=== PATIENT | female | born 1985 | race Hispanic/Latino ===

== ENCOUNTER 2020-01-17 17:55 | Emergency (ER) | payer OTHER ==
[2020-01-17] MEDS ORDERED: KETOROLAC TROMETHAMINE 60 MG/2 ML VIAL ONE (18:07)
[2020-01-17] MEDS ORDERED: ALPRAZOLAM 0.25 MG TABLET ONE (18:07)
== END 2020-01-17 19:02 | disposition home or self-care (01) ==
LOC: EDH 17:55
DX: R07.89 Other chest pain (principal); F45.8 Other somatoform disorders; F41.9 Anxiety disorder, unspecified; Z88.5 Allergy status to narcotic agent
CPT/HCPCS: 71045; 93005; 96372; 99283; J1885

== ENCOUNTER 2020-04-22 16:05 | Emergency (ER) | payer SELFPAY ==
[2020-04-22] MEDS ORDERED: ASPIRIN 325 MG TABLET ONE (16:56)
[2020-04-22 17:00] LABS: BASOPHILS % (AUTO) 0.4 % (0.0-5.0); EOSINOPHILS % (AUTO) 1.7 % (0.0-8.0); HEMATOCRIT 42.7 % (36-48); LYMPHOCYTES % (AUTO) 31.3 % (21.0-51.0); MEAN CORPUSCULAR HEMOGLOBIN 29.4 pg (27.0-33.0); MEAN CORPUSCULAR HGB CONC 34.2 g/dL (32.0-36.0); MEAN CORPUSCULAR VOLUME 86.1 fL (79-99); MONOCYTES % (AUTO) 7.9 % (3.0-13.0); NEUTROPHILS % (AUTO) 58.4 % (40.0-77.0); PLATELET COUNT (AUTO) 406 K/uL (130-400); RED BLOOD CELL COUNT(AUTO) 4.96 MIL/uL (4.00-5.50); RED CELL DISTRIBUTION WIDTH 11.9 % (11.0-15.5); WHITE BLOOD COUNT (AUTO) 11.1 K/uL (4.8-10.8)
[2020-04-22 17:11] LABS: PROTHROMBIN TIME 10.9 SEC (9.6-11.6)
[2020-04-22 17:13] LABS: PARTIAL THROMBOPLASTIN TIME 30.1 SEC (26.3-35.5)
[2020-04-22 17:17] LABS: ALBUMIN 3.6 g/dL (3.5-5.0); BILIRUBIN,TOTAL 0.3 mg/dL (0.2-1.0); CREATININE 0.7 mg/dL (0.5-1.5); POTASSIUM 3.5 mmol/L (3.5-5.1); TOTAL PROTEIN, SERUM 7.5 g/dL (6.0-8.3)
[2020-04-22 17:34] LABS: APPEARANCE,URINE Clear (CLEAR); BILIRUBIN,URINE Negative (NEGATIVE); COLOR,URINE Yellow (YELLOW); GLUCOSE, URINE (UA) Negative (NEGATIVE); KETONES,URINE Negative (NEGATIVE); LEUKOCYTE ESTERASE ,URINE Negative (NEGATIVE); NITRATE,URINE Positive (NEGATIVE); OCCULT BLOOD,URINE Negative (NEGATIVE); PROTEIN,URINE POS 1+ mg/dL (NEGATIVE)
[2020-04-22 18:04] LABS: BACTERIA,URINE Many /HPF (None Seen); MUCUS,URINE Rare LPF (None Seen)
[2020-04-22] MEDS ORDERED: KETOROLAC 30MG VIAL (30MG/ML) ONE (18:35)
[2020-04-22] MEDS ORDERED: NITROFURANTOIN MONOHYD/M-CRYST 100 MG CAPSULE PO ONE (18:35)
[2020-04-22] MEDS ORDERED: 0.9%NACL 1000ML 1,000 ML IV ONE (18:37)
== END 2020-04-22 20:49 | disposition home or self-care (01) ==
LOC: EDH 16:05
DX: N39.0 Urinary tract infection, site not specified (principal); R07.89 Other chest pain; Z98.890 Other specified postprocedural states; Z88.1 Allergy status to other antibiotic agents; Z90.710 Acquired absence of both cervix and uterus
CPT/HCPCS: 36415; 71045; 80053; 81001; 82550; 84484; 85025; 85610; 85730; 87077; 87088; 87186; 93005; 96374; 99285; J1885; J7030

== ENCOUNTER 2020-11-10 16:22 | Emergency (ER) | payer OTHER ==
[~2020-11-10] VITALS: Ht 152.4 cm; Wt 100.0 kg
[2020-11-10 16:40] VITALS: BP 129/81
[2020-11-10] MEDS ORDERED: MORPHINE 4 MG SYG IVP ONE (17:00)
[2020-11-10] MEDS ORDERED: 0.9%NACL 1000ML 1,000 ML IV ONE (17:00)
[2020-11-10] MEDS ORDERED: ACETAMINOPHEN 325 MG TAB PO ONE (17:00)
[2020-11-10] MEDS ORDERED: ONDANSETRON 4MG INJ IVP ONE (17:00)
[2020-11-10 17:34] LABS: BASOPHILS % (AUTO) 0.4 % (0.0-5.0); EOSINOPHILS % (AUTO) 1.8 % (0.0-8.0); HEMATOCRIT 42.3 % (36-48); LYMPHOCYTES % (AUTO) 33.1 % (21.0-51.0); MEAN CORPUSCULAR HEMOGLOBIN 29.5 pg (27.0-33.0); MEAN CORPUSCULAR HGB CONC 33.8 g/dL (32.0-36.0); MEAN CORPUSCULAR VOLUME 87.2 fL (79-99); NEUTROPHILS % (AUTO) 58.4 % (40.0-77.0); PLATELET COUNT (AUTO) 379 K/uL (130-400); RED BLOOD CELL COUNT(AUTO) 4.85 MIL/uL (4.00-5.50); RED CELL DISTRIBUTION WIDTH 12.4 % (11.0-15.5)
[2020-11-10 17:59] LABS: ALBUMIN 3.2 g/dL (3.5-5.0); BILIRUBIN,TOTAL 0.3 mg/dL (0.2-1.0); CREATININE 0.9 mg/dL (0.5-1.5); POTASSIUM 3.6 mmol/L (3.5-5.1); TOTAL PROTEIN, SERUM 7.5 g/dL (6.0-8.3)
[2020-11-10] MEDS ORDERED: IOHEXOL-350 75 ML VIAL IV ONE (18:03)
[2020-11-10 19:24] VITALS: BP 129/84
[2020-11-10] MEDS ORDERED: ONDA4TAB4 PO (19:39)
[2020-11-10] MEDS ORDERED: CIPR-278 PO (19:39)
[2020-11-10] MEDS ORDERED: METR-172 PO (19:39)
[2020-11-10 19:57] LABS: APPEARANCE,URINE Clear (CLEAR); BILIRUBIN,URINE Negative (NEGATIVE); COLOR,URINE Yellow (YELLOW); GLUCOSE, URINE (UA) Negative (NEGATIVE); KETONES,URINE Negative (NEGATIVE); LEUKOCYTE ESTERASE ,URINE Negative (NEGATIVE); NITRATE,URINE Negative (NEGATIVE); OCCULT BLOOD,URINE Negative (NEGATIVE); PROTEIN,URINE Trace mg/dL (NEGATIVE)
[2020-11-10] MEDS ORDERED: MORPHINE 2 MG SYG IVP ONE (20:00)
[2020-11-10] MEDS ORDERED: METRONIDAZOLE 500 MG TABLET PO SCH (20:00)
[2020-11-10] MEDS ORDERED: KETOROLAC 30MG VIAL (30MG/ML) IV ONE (20:00)
[2020-11-10] MEDS ORDERED: CIPROFLOXACIN HCL 500 MG TABLET PO SCH (20:00)
[2020-11-10] MEDS ORDERED: ACET1TAB25 PO (20:23)
== END 2020-11-10 20:52 | disposition home or self-care (01) ==
LOC: EDH 16:22
DX: K57.32 Diverticulitis of large intestine without perforation or abscess without bleeding (principal); Z79.1 Long term (current) use of non-steroidal anti-inflammatories (NSAID); Z79.899 Other long term (current) drug therapy; Z88.0 Allergy status to penicillin
CPT/HCPCS: 36415; 74177; 80053; 81003; 83690; 85025; 87088; 96361; 96374; 96375; 96376; 99285; J1885; J2270; J2405; J7030; Q9967

== ENCOUNTER 2021-02-23 17:38 | Emergency (ER) | payer OTHER ==
[~2021-02-23] VITALS: Ht 162.6 cm; Wt 85.7 kg
[~2021-02-23 17:38] MED LIST: ACET1TAB25 PO; CIPR-278 PO; METR-172 PO; ONDA4TAB4 PO
[2021-02-23 17:42] VITALS: BP 108/79
== END 2021-02-23 20:56 | disposition left against medical advice (07) ==
LOC: EDH 17:38
DX: R05.9 Cough, unspecified (principal); R09.81 Nasal congestion; Z20.822 Contact with and (suspected) exposure to COVID-19
CPT/HCPCS: 71045; 87635; 87804 ×2; C9803

== ENCOUNTER 2023-07-10 12:33 | Emergency (ER) | payer OTHER ==
[~2023-07-10] VITALS: Ht 152.4 cm; Wt 80.3 kg
[~2023-07-10 12:33] MED LIST changes: +ACET-2079 PO; -ACET1TAB25 PO
[2023-07-10 13:04] LABS: BASOPHILS # (AUTO) 0.03 K/uL (0.00-0.20); BASOPHILS % (AUTO) 0.4 % (0.0-5.0); EOSINOPHILS # (AUTO) 0.18 K/uL (0.00-0.70); EOSINOPHILS % (AUTO) 2.5 % (0.0-8.0); IMMATURE GRANULOCYTE ABSOLUTE 0.02 K/uL (0-1); LYMPHOCYTES # (AUTO) 2.2 K/uL (1.0-4.8); LYMPHOCYTES % (AUTO) 29.8 % (21.0-51.0); MEAN CORPUSCULAR HEMOGLOBIN 29.8 pg (27.0-33.0); MEAN CORPUSCULAR HGB CONC 34.6 g/dL (32.0-36.0); MEAN CORPUSCULAR VOLUME 86.2 fL (79-99); MONOCYTES # (AUTO) 0.4 K/uL (0.1-1.0); MONOCYTES % (AUTO) 5.6 % (3.0-13.0); NEUTROPHILS # (AUTO) 4.5 K/uL (1.8-7.7); NEUTROPHILS % (AUTO) 61.4 % (40.0-77.0); PLATELET COUNT (AUTO) 354 K/uL (130-400); RED BLOOD CELL COUNT(AUTO) 5.57 MIL/uL (4.00-5.50); RED CELL DISTRIBUTION WIDTH 12.5 % (11.0-15.5); WHITE BLOOD COUNT (AUTO) 7.3 K/uL (4.8-10.8)
[2023-07-10 13:13] LABS: CREATININE 0.8 mg/dL (0.5-1.0); POTASSIUM 3.9 mmol/L (3.5-5.1)
[2023-07-10 13:17] LABS: ALBUMIN 3.5 g/dL (3.5-5.0); BILIRUBIN,TOTAL 0.5 mg/dL (0.2-1.0); TOTAL PROTEIN, SERUM 7.5 g/dL (6.0-8.3)
[2023-07-10 14:12] VITALS: BP 121/65; PULSE 85; RESP 16
[2023-07-10] MEDS: ACETAMINOPHEN 500 MG TABLET PO ONE (14:49)
[2023-07-10 18:05] LABS: ADD UA MICROSCOPIC YES; APPEARANCE,URINE CLEAR (CLEAR); BILIRUBIN,URINE NEGATIVE (NEGATIVE); COLOR,URINE YELLOW (YELLOW); GLUCOSE, URINE (UA) NEGATIVE (NEGATIVE); KETONES,URINE NEGATIVE (NEGATIVE); LEUKOCYTE ESTERASE ,URINE NEGATIVE Leu/uL (NEGATIVE); NITRATE,URINE NEGATIVE (NEGATIVE); OCCULT BLOOD,URINE NEGATIVE (NEGATIVE); PROTEIN,URINE 50 mg/dL (NEGATIVE); UROBILINOGEN,URINE 0.2 mg/dL (0.2-1.0)
[2023-07-10 18:07] LABS: BACTERIA,URINE RARE /HPF (None Seen); MUCUS,URINE RARE LPF (None Seen); RBC,URINE 0-1 /HPF (0-1); SQUAMOUS EPITHELIAL CELL,UR RARE /HPF (0-2)
[2023-07-10] MEDS ORDERED: IOHEXOL-350 75 ML VIAL IV ONE (18:55)
[2023-07-10] MEDS: MORPHINE 2 MG SYG IVP ONE (20:46)
[2023-07-10] MEDS ORDERED: IBUP-2077 PO (21:29)
== END 2023-07-10 22:13 | disposition home or self-care (01) ==
LOC: EDH 12:33
DX: K92.2 Gastrointestinal hemorrhage, unspecified (principal); Z79.899 Other long term (current) drug therapy; Z90.710 Acquired absence of both cervix and uterus; Z98.890 Other specified postprocedural states; Z88.0 Allergy status to penicillin
CPT/HCPCS: 99285; 74177; 96374; 82270; 80053; 85025; 81001; 36415; J2270; Q9967

== ENCOUNTER 2024-04-25 13:09 | Emergency (ER) | payer BC ==
[~2024-04-25] VITALS: Ht 160 cm; Wt 86.2 kg
[~2024-04-25 13:09] MED LIST changes: +IBUP-2077 PO
--- NOTE | 2024-04-25 13:53 | ERN ---
ED Note History of Present Illness Stated Complaint: MULT COMP Time Seen by MD: 13:13 Dictation: PATIENT IS A 39-YEAR-OLD FEMALE COMING IN WITH FLU-LIKE SYMPTOMS TO INCLUDE COUGH WITH THE OCCASIONAL CLEAR YELLOW PHLEGM, SINUS CONGESTION SORE THROAT WITH PAINFUL SWALLOWING. SHE STATES SHE ALSO HAS BODY ACHES HAS TAKEN [id number] MEDICATIONS FOR PAIN. NO PRIMARY CARE DOCTOR NO NAUSEA VOMITING NO DIARRHEA NO LOSS OF TASTE OR SMELL. Allergies: Coded Allergies: amoxicillin (Unverified Allergy, Unknown, 01/17/20) Home Meds Active Scripts Methylprednisolone (Medrol) 4 Mg Tab.ds.pk, 1 TAB PO AD for 6 Days, #21 TAB 0 Refills 6 on day 1 then reduce by one tablet daily until gone Prov:VIOLA JAIN DUTY ENGINEER 04/25/24 Benzonatate (Tessalon Perles) 100 Mg Cap, 100 MG PO TID for cough, #30 CAP 0 Refills Prov:VIOLA JAIN DUTY ENGINEER 04/25/24 Albuterol Sulfate (Ventolin Hfa/Proventil Hfa/Proair Hfa) 90 Mcg Puff, 2 PUFF IH Q4H for WHEEZING, #1 INHALER 0 Refills Prov:VIOLA JAIN NP 04/25/24 Azithromycin (Zithromax Tri-Ac) 500 Mg Tablet, 500 MG PO DAILY for 7 Days, #7 TAB Prov:VIOLA JAIN DUTY ENGINEER 04/25/24 Ibuprofen (Ibuprofen 800 mg Tab) 800 Mg Tab, 800 MG PO Q6H PRN for PAIN, #30 TAB Prov:PHUC ROMERO DO 07/10/23 Acetaminophen with Codeine (Acetaminophen-Cod #3 Tablet) 1 Each Tablet, 1 TAB PO TID PRN for PAIN LEVEL 1 TO 5 for 3 Days, #9 TAB Prov:DEAN CLEMONS 11/10/20 Ondansetron HCl (Zofran) 4 Mg Tablet, 4 MG PO Q8H PRN for NAUSEA/VOMITING for 3 Days, #9 TAB 0 Refills Prov:DEAN CLEMONS 11/10/20 Metronidazole (Metronidazole) 500 Mg Tablet, 500 MG PO TID for 10 Days, #30 TAB Prov:DEAN CLEMONS 11/10/20 Ciprofloxacin HCl (Cipro) 500 Mg Tablet, 1 TAB PO BID for 10 Days, #20 TAB 0 Refills Prov:DEAN CLEMONS CHEL 11/10/20 Past Medical History Past Medical History: Other Additional Past Medical Hx: HX OF COLON CA Surgical History: Hysterectomy, Surgical History Other: COLON RESECTION Social History: Negative, Lives with family History: Not Applicable RN Note Reviewed/Agreed w/PFSH: Yes Review of System Dictation CONSTITUTIONAL: NEGATIVE EXCEPT FOR HPI FEVER CHILLS HEAD/FACE: NEGATIVE EXCEPT FOR HPI EENT: NEGATIVE EXCEPT FOR HPI SINUS CONGESTION WITH MILD SORE THROAT RESPIRATORY: NEGATIVE EXCEPT FOR HPI COUGH GASTROINTESTINAL/ABDOMINAL: NEGATIVE EXCEPT FOR HPI GENITOURINARY: NEGATIVE EXCEPT FOR HPI MUSCULOSKELETAL: NEGATIVE EXCEPT FOR HPI INTEGUMENTARY: NEGATIVE EXCEPT FOR HPI NEUROLOGICAL/PSYCH: NEGATIVE EXCEPT FOR HPI HEMATOLOGIC/LYMPHATIC: NEGATIVE EXCEPT FOR HPI ALL SYSTEMS NEGATIVE, EXCEPT NOTED ABOVE. 13 POINT REVIEW OF SYSTEMS ASSESSED AND ALL NEGATIVE EXCEPT FOR ABOVE. Initial Vital Sign VS Vital Signs Date Time Temp Pulse Resp B/P (MAP) Pulse Ox O2 Delivery O2 Flow Rate FiO2 04/25/24 13:56 98.4 73 20 134/92 99 Room Air 0 04/25/24 14:43 21 Physical Exam Dictation VITAL SIGNS REVIEWED GENERAL APPEARANCE: ALERT, ORIENTED X 3, MILD ACUTE DISTRESS, WELL DEVELOPED, NOURISHED. HEAD AND FACE: NON-TRAUMATIC. EYES: PERRL, PINK CONJUNCTIVAS, EYELID NO TRAUMA, ANTERIOR CHAMBER WITH ARCUS SENILIS. EARS: PINNAS INTACT AND NO SIGNS OF TRAUMA OR ERYTHEMA EAR CANALS CLEAR AND NO DISCHARGE TM NO ERYTHEMA NOSE: CLEAR DISCHARGE, NO BLEEDING. OROPHARYNX: MOUTH NORMAL, TONGUE PINK, PHARYNX CLEAR MODERATE PHARYNGEAL ERYTHEMA, TONSILS NO EXUDATES, NO ABSCESSES NOTED, MUCOUS MEMBRANE MOIST UVULA MIDLINE, VOICE NECK: SUPPLE, NON-TENDER, NO THYROMEGALY, NO MASSES, NO JVD, NO BRUITS BREAST:DEFERRED CHEST:NO TENDERNESS, NO CREPITUS, NO PARADOXICAL MOVEMENT, NO RETRACTIONS LUNGS:CLEAR, WELL-VENTILATED, SYMMETRIC, NO RALES, NO WHEEZING, NO RHONCHI, NO STRIDOR, GOOD BREATH SOUNDS BILATERALLY IS CLEAR DRY COUGH NOTED HEART: REGULAR RATE, REGULAR RHYTHM, NO MURMUR, NO GALLOPS VASCULAR: NO PERIPHERAL EDEMA, ABDOMEN: SOFT, POSITIVE BOWEL SOUNDS, NONDISTENDED, NO GUARDING, NONTENDER, NO REBOUND, NO MASSES NO HEPATOMEGALY, NO SPLENOMEGALY, NO RADFORD'S SIGN, NO HERNIAS. RECTAL: DEFERRED GENITAL: DEFERRED NEUROLOGICAL: NORMAL SPEECH, MOTOR FUNCTION INTACT, SENSORY FUNCTION INTACT MUSCULOSKELETAL: NECK NONTENDER, FULL RANGE OF MOTION, BACK NONTENDER, FULL RANGE OF MOTION, EXTREMITIES: NONTENDER, FULL RANGE OF MOTION SKIN: COLOR PINK, DRY, NO TURGOR, NO RASH, NO LACERATIONS, NO ABRASIONS, NO CONTUSIONS. LYMPHATIC: DEFERRED Results (Laboratory/Radiology) Laboratory/Radiology Labs Reviewed?: Yes ED Course ED Course 5/SWABS NEGATIVE PATIENT DISCHARGED HOME WITH VIRAL URI WITH COUGH AND ACUTE PHARYNGITIS UNSPECIFIED. Medical Decision Making MDM MEDICAL DISCHARGE MAKING BASED ON SWABS FOR FLU COVID AND STREP ALL SWABS NEGATIVE PATIENT FEELING BETTER AFTER DECADRON DISCHARGED HOME WITH A VIRAL URI WITH COUGH AND ACUTE PHARYNGITIS UNSPECIFIED DX & DISP Disposition: Discharge Departure Impression: Primary Impression: Acute pharyngitis, unspecified Additional Impression: Viral URI with cough Condition: Stable Scripts Methylprednisolone (Medrol) 4 Mg Tab.ds.pk 1 TAB PO AD for 6 Days, #21 TAB 0 Refills 6 on day 1 then reduce by one tablet daily until gone Prov: VIOLA JAIN DUTY ENGINEER 3/08/14 Benzonatate (Tessalon Perles) 100 Mg Cap 100 MG PO TID for cough, #30 CAP 0 Refills Prov: VIOLA JAIN DUTY ENGINEER // Albuterol Sulfate (Ventolin Hfa/Proventil Hfa/Proair Hfa) 90 Mcg Puff 2 PUFF IH Q4H for WHEEZING, #1 INHALER 0 Refills Prov: VIOLA JAIN DUTY ENGINEER 04/25/24 Azithromycin (Zithromax Tri-Ac) 500 Mg Tablet 500 MG PO DAILY for 7 Days, #7 TAB Prov: VIOLA JAIN DUTY ENGINEER 04/25/24 Additional Instructions: FOLLOW-UP WITH PRIMARY CARE PROVIDER IN 1 TO 2 DAYS. TAKE MEDICATIONS DIRECTED HERE IN THE EMERGENCY ROOM. OKAY TO CONTINUE HOME MEDICATIONS UNLESS OTHERWISE DISCUSSED DURING YOUR VISIT IN THE EMERGENCY ROOM TODAY. RETURN TO YOUR NEAREST EMERGENCY ROOM IF SYMPTOMS WORSEN OR IF THERE IS NO IMPROVEMENT. CALL 911 IF YOU NEED IMMEDIATE ASSISTANCE. TAKE TYLENOL OR MOTRIN [id number] NEEDED AND IF NO CONTRAINDICATIONS ARE PRESENT. INCREASE ORAL HYDRATION. A WOUND CULTURE OR URINE CULTURE WAS ORDERED HERE IN THE EMERGENCY ROOM DEPARTMENT PLEASE FOLLOW-UP WITH PRIMARY CARE PROVIDER AND ADVISE THEM TO GET REPEAT PORTS FROM OUR FACILITY. IF YOU HAD ANY SARAVANAN WRAP/SPLINTS THAT WERE APPLIED HERE, PLEASE DO NOT REMOVE THEM UNTIL YOU SEE YOUR PRIMARY CARE OR SPECIALTY. USE ALBUTEROL INHALER EVERY4 HOURS WHILE AWAKE FOR THE NEXT THREE DAYS. TAKE A NTIBIOTICS DIRECTED UNTIL GONE. SEE YOUR PRIMARY CARE DOCTOR FOR FOLLOW UP. Referrals: MIGUELANGEL BRICEÑO (PCP) Time of Disposition: 16:56 I have reviewed the case, and I agree with, Diagnosis and Plan I performed the substantive portion of the visit. I have reviewed and personally made and approve the management plan that is documented in the notes by myself or the [facility]. I acknowledge full responsibility for the patient's management plan. VIOLA JAIN NP Apr 25, 2024 13:53 TATE PIPER MD Apr 28, 2024 18:40
[2024-04-25] MEDS: dexaMETHasone SOD PHOSPHATE 4 MG/ML 1ML VIAL IM ONE (14:38)
[2024-04-25] MEDS: acetaMINOPHEN 500 MG TABLET PO ONE (14:39)
[2024-04-25 14:43] VITALS: BP 134/92; PULSE 73; RESP 20; TEMP 98.4; O2SAT 99
[2024-04-25 14:50] LABS: RAPID GROUP A STREP negative (NEGATIVE)
[2024-04-25 15:00] LABS: COVID19 (SARS ANTIGEN RAPID) PRESUMPTIVE NEGATIVE (NEGATIVE); INFLUENZA TYPE A Negative For Type A (NEGATIVE); INFLUENZA TYPE B Negative For Type B (NEGATIVE)
[2024-04-25] MEDS ORDERED: BENZ-39 PO (16:58)
[2024-04-25] MEDS ORDERED: METH4TAB3 PO (16:58)
[2024-04-25] MEDS ORDERED: ALBUHFA IH (16:58)
[2024-04-25] MEDS ORDERED: AZIT500T2 PO (16:58)
== END 2024-04-25 17:09 | disposition home or self-care (01) ==
LOC: EDH 13:09
DX: J06.9 Acute upper respiratory infection, unspecified (principal); Z20.822 Contact with and (suspected) exposure to COVID-19; Z85.038 Personal history of other malignant neoplasm of large intestine; Z88.0 Allergy status to penicillin; Z90.710 Acquired absence of both cervix and uterus; Z98.890 Other specified postprocedural states
CPT/HCPCS: 99284; 87426; 87880; 87804 ×2; 96372; J1100